=== PATIENT | male | born 1955 | race Caucasian/White ===

== ENCOUNTER 2016-09-03 07:37 | Emergency (ER) | payer OTHER ==
[~2016-09-03 07:37] MED LIST: CARAFATE1 GM PO; CEFDINIR300 MG PO; COMBIVENT RESPIM4 GM INH; CYMBALTA30 MG PO; FLOMAX0.4 MG PO; HYDROCODON-ACE1 EAC2 PO; METHOCARBAMOL500 MG PO; NEURONTIN600 MG PO; NICODERM 21MG PA1 EA TD; NORVASC5 MG PO; OMEPRAZOLE40 MG PO; POTASSIUM CHLO10 ME1 PO; PREDNISONE10 MG PO; PROSCAR5 MG PO; TYLENOL325 M1 PO; XANAX0.5 MG PO; ZITHROMAX250 MG PO
[2016-09-03 08:42] LABS: BASO % 0.7 % (0.2-1.2); EOS # 0.3 10_X3_uL (0.0-0.5); EOS % 4.5 % (0.8-7.0); GRAN # 4.3 10_X3_uL (1.8-5.4); GRAN % 71.2 % (34.0-67.9); HEMOGLOBIN 12.3 g/dL (13.7-17.5); LYMPH % 16.7 % (21.8-53.1); MEAN CORPUSCULAR HEMOGLOBIN 31.9 pg (27.0-33.0); MEAN CORPUSCULAR HGB CONC 35.1 g/dL (32.0-36.0); MEAN CORPUSCULAR VOLUME 90.9 fL (79-92); MEAN PLATELET VOLUME 9.3 fl (7.5-11.5); MONO # 0.4 10_X3_uL (0.3-0.8); MONO % 6.9 % (5.3-12.2); PLATELET COUNT 282 x10_3/uL (163-337); RED BLOOD COUNT 3.85 x10_6/uL (4.6-6.1); RED CELL DISTRIBUTION WIDTH 13.3 % (11.6-14.4)
[2016-09-03 09:02] LABS: ALBUMIN 3.3 gm/dL (3.4-5.0); ALKALINE PHOSPHATASE 142 U/L (50-136); ALT/SGPT 15 U/L (7.53-40.17); AST/SGOT 20 U/L (6.66-35.34); BILIRUBIN,TOTAL 0.49 mg/dL (0.0-1.0); BLOOD UREA NITROGEN 6 mg/dL (7-18); CALCIUM 8.8 mg/dL (8.7-10.7); CARBON DIOXIDE 24 mmol/L (21-32); CREATINE KINASE 488 U/L (35-232); CREATININE 0.7 mg/dL (0.6-1.3); GLUCOSE,RANDOM 93 mg/dL (70-99); SODIUM 140 mmol/L (136-145)
[2016-09-03 09:39] LABS: URINE BILIRUBIN NEGATIVE (NEGATIVE); URINE BLOOD NEGATIVE (NEGATIVE); URINE GLUCOSE (UA) NORMAL (NORMAL); URINE KETONE NEGATIVE (NEGATIVE); URINE LEUKOCYTE ESTERASE TRACE (NEGATIVE); URINE NITRATE NEGATIVE (NEGATIVE); URINE PROTEIN NEGATIVE (NEGATIVE); UROBILINOGEN NORMAL mg/dL (<1.0)
[2016-09-03 09:57] LABS: URINE BACTERIA TRACE (NONE SEEN); URINE MUCUS TRACE; URINE RBC 0-5 /[HPF] (0-2); URINE WBC RARE /[HPF] (0-3)
== END 2016-09-03 10:21 | disposition home or self-care (01) ==
LOC: ER 07:37
PROVIDERS: Internal Medicine
DX: R60.0 Localized edema (principal); E88.09 Other disorders of plasma-protein metabolism, not elsewhere classified; R52 Pain, unspecified; J44.9 Chronic obstructive pulmonary disease, unspecified; Z85.01 Personal history of malignant neoplasm of esophagus; F17.210 Nicotine dependence, cigarettes, uncomplicated
CPT/HCPCS: 36415; 71020; 80053; 80307; 81001; 82550; 82553; 83880; 85025; 99283-25

== ENCOUNTER 2016-09-12 07:44 | Emergency (ER) | payer OTHER | END 2016-09-12 08:57 | disposition home or self-care (01) | LOC: ER 07:44 | DX: G62.9 Polyneuropathy, unspecified (principal); G89.29 Other chronic pain; M54.9 Dorsalgia, unspecified; K21.9 Gastro-esophageal reflux disease without esophagitis; J44.9 Chronic obstructive pulmonary disease, unspecified; F41.9 Anxiety disorder, unspecified; F17.210 Nicotine dependence, cigarettes, uncomplicated; Z79.899 Other long term (current) drug therapy | CPT/HCPCS: 70450; 99284-25 ==